=== PATIENT | female | born 1950 | race Caucasian/White ===

== ENCOUNTER → 2017-05-26 | Outpatient (CLI) | payer MEDICARE ==
[~2017-05-26] MED LIST: ANTIVERT/2525 MG PO; ANTIVERT25 MG; ATIVAN1 MG PO; CALCIUM 600600 M2 PO; CLARITIN10 MG PO; DAYPRO600 M1 PO; DIFLUCAN150 MG PO; FLAGYL500 MG PO; FLORASTOR250 MG PO; HYOSCYAMINE0.125 M1 PO; KEFLEX250 MG PO; LEVOFLOXACIN500 MG PO; MULTI VITAMINS1 TAB PO; NATURE'S BLE1000 MCG PO; NEXIUM40 MG PO; PEPCID40 MG PO; PROVENTIL0.09 MG/A1 INH; ROBAXIN750 MG PO; VICODIN ES 7501 TAB PO; VITAMIN B12 1541 TAB PO; VITAMIN C100 M3 PO; VITAMIN E100 UNI1 PO; ZOFRAN ODT4 MG SL; ZOLOFT50 MG PO
[2017-05-26 09:26] LABS: HEMATOCRIT 41.8 % (37.0-47.0); HEMOGLOBIN 13.4 g/dl (12.0-16.0); MEAN CELL VOLUME 88.9 fl (81.0-99.0); MEAN CORPUSCULAR HGB 28.5 pg (27.0-31.0); MEAN CORPUSCULAR HGB CONC 32.1 g/dl (33.0-37.0); MEAN PLATELET VOLUME 9.5 fl (9.6-12.3); RED BLOOD COUNT 4.7 10*6/uL (4.10-5.10); RED CELL DISTRI WIDTH 13.7 % (0-14.5); WHITE BLOOD COUNT 5.9 10*3/uL (4.8-10.8)
[2017-05-26 09:51] LABS: ALBUMIN 3.9 gm/dl (3.1-4.5); ALKALINE PHOSPHATASE 77 U/L (45-117); BUN 12 mg/dl (7-24); CHLORIDE 104 mmol/L (98-107); CHOLESTEROL 199 mg/dL (<200); CPK 82 U/L (26-192); CREATININE 0.78 mg/dL (0.55-1.02); HDL CHOLESTEROL 66 mg/dl (40-60); LDL CHOLESTEROL 119 mg/dL (9-159); POTASSIUM 3.9 mmol/L (3.5-5.1); SGOT/AST 16 IU/L (3-35); SGPT/ALT 22 U/L (12-78); SODIUM 142 mmol/L (136-145); TOTAL PROTEIN 7.7 gm/dL (6.4-8.2); TRIGLYCERIDES 70 mg/dl (<150); VLDL CHOLESTEROL 14 mg/dL (6-40)
[2017-05-27 08:11] LABS: RHEUMATOID ARTHRITIS FACTOR <10.0 IU/mL (0.0-13.9)
== END | disposition home or self-care (01) ==
LOC: LAB 08:49
PROVIDERS: Family Medicine
DX: E78.00 Pure hypercholesterolemia, unspecified (principal); L65.9 Nonscarring hair loss, unspecified; M79.1 Myalgia; F41.1 Generalized anxiety disorder; E74.09 Other glycogen storage disease; K58.9 Irritable bowel syndrome, unspecified; E55.9 Vitamin D deficiency, unspecified

== ENCOUNTER → 2018-03-03 | Outpatient (CLI) | payer MEDICARE ==
[2018-03-03 09:11] LABS: HEMOGLOBIN 14.1 g/dl (12.0-16.0); MEAN CELL VOLUME 90.4 fl (81.0-99.0); MEAN CORPUSCULAR HGB 28.3 pg (27.0-31.0); MEAN CORPUSCULAR HGB CONC 31.3 g/dl (33.0-37.0); MEAN PLATELET VOLUME 9.4 fl (9.6-12.3); RED BLOOD COUNT 4.98 10*6/uL (4.10-5.10); RED CELL DISTRI WIDTH 13.8 % (0-14.5); WHITE BLOOD COUNT 6.2 10*3/uL (4.8-10.8)
[2018-03-03 09:33] LABS: ALBUMIN 3.8 gm/dl (3.1-4.5); ALKALINE PHOSPHATASE 80 U/L (45-117); BUN 14 mg/dl (7-24); CHLORIDE 105 mmol/L (98-107); CHOLESTEROL 226 mg/dL (<200); HDL CHOLESTEROL 64 mg/dl (40-60); LDL CHOLESTEROL 143 mg/dL (9-159); POTASSIUM 4.3 mmol/L (3.5-5.1); SGOT/AST 15 IU/L (3-35); SGPT/ALT 20 U/L (12-78); SODIUM 141 mmol/L (136-145); TOTAL PROTEIN 7.5 gm/dL (6.4-8.2); TRIGLYCERIDES 97 mg/dl (<150); VLDL CHOLESTEROL 19 mg/dL (6-40)
[2018-03-03 11:02] LABS: VITAMIN D, 25-HYDROXY 39.4 ng/mL (30-100)
[2018-03-05 17:34] LABS: TESTOSTERONE FREE, (DIRECT) 1.4 pg/mL (0.0-4.2)
== END | disposition home or self-care (01) ==
LOC: LAB 08:35
PROVIDERS: Family Medicine
DX: R06.02 Shortness of breath (principal); R05 Cough; R09.89 Other specified symptoms and signs involving the circulatory and respiratory systems; R42 Dizziness and giddiness; R53.83 Other fatigue; E55.9 Vitamin D deficiency, unspecified; K58.9 Irritable bowel syndrome, unspecified; F41.9 Anxiety disorder, unspecified; L98.9 Disorder of the skin and subcutaneous tissue, unspecified; E74.00 Glycogen storage disease, unspecified; Z79.899 Other long term (current) drug therapy

== ENCOUNTER → 2018-07-10 | Outpatient (CLI) | payer MEDICARE ==
[~2018-07-10] MED LIST changes: +NEXIUM20 M1 PO
== END | disposition home or self-care (01) ==
LOC: US 08:56
DX: R10.2 Pelvic and perineal pain (principal); Z90.710 Acquired absence of both cervix and uterus; Z90.721 Acquired absence of ovaries, unilateral; Z90.5 Acquired absence of kidney

== ENCOUNTER → 2018-08-14 | Day surgery (SDC) | payer MEDICARE ==
[~2018-08-14] VITALS: Ht 170.1 cm; Wt 65.8 kg
--- NOTE | ~2018-08-14 | O ---
[place], [place] OPERATIVE NOTE NAME: SALLY KUMARI UNIT #: [id number] ROOM: DOCTOR: CAMILLA IBRAHIMKENDAL BIRTHDATE: [birth year] DOS: 08/14/2018 INDICATIONS: A 68-year-old patient who has presented with chief complaint of epigastric distress, dyspepsia, abdominal pain, and cramp. ALLERGIES: LEVAQUIN, MYCINS AND IVP DYE. FAMILY HISTORY: Noncontributory. PAST SURGICAL HISTORY: Hysterectomy, tonsillectomy, hemorrhoidectomy, breast lumpectomy, and negative pathology of the breast biopsy. PAST MEDICAL HISTORY: Gastritis, depression, IBS diarrhea-dominant. PROCEDURE: Today's procedure part of investigation is panendoscopy and colonoscopy. PREMEDICATION: Propofol. SCOPE: Olympus forward-viewing gastroscope Q10 video. REPORT: After putting the patient in left lateral position and application of lubricant to the scope, the scope was introduced. Thereafter, under direct visualization, advanced through the length of esophagus without difficulty. Hiatal hernia was noticed. Small gastritis appreciated. Antral biopsy obtained. Duodenal bulb, second and third part within normal limit. The patient extubated, tolerated the procedure well. IMPRESSION: Gastritis and hiatal hernia. PLAN AND DISCUSSION: The patient already on Nexium 20 mg 1 every day. Elevation of the head of the bed 6 inch all time. Gaviscon as antacid of choice. Furthermore, we are going to proceed with colonoscopy. INDICATIONS: The patient has presented with chief complaint of change in bowel habit, abdominal pain, undergoing investigation. PROCEDURE: Today's procedure part of investigation is colonoscopy plus piecemeal polypectomy. PREMEDICATION: Propofol. SCOPE: Olympus forward-viewing colonoscope 10L video. REPORT: After putting the patient in left lateral position and application of lubricant to the scope, the scope was introduced. Thereafter, under direct visualization, advanced through the length of colon without difficulty. Base of the cecum explored, appendiceal orifice identified. The ileocecal valve was defined. Moderate diverticulosis of sigmoid colon was appreciated. Sessile polypoid lesion from the base of the cecum with piecemeal polypectomy was [place], [place] OPERATIVE NOTE NAME: LANE KUMARIKimberly Sena UNIT #: [id number] ROOM: DOCTOR: CAMILLA IBRAHIM,KENDAL BIRTHDATE: [birth year] removed. Air was suctioned out. The patient was extubated, tolerated the procedure well. IMPRESSION: Colonic polyp at the base of cecum, sessile in character, status post piecemeal polypectomy. Other adjunctive diagnosis [id number] diverticulosis of sigmoid colon, status post photographic series. PLAN AND DISCUSSION: We are going to consider an element of diverticular disease in her complaints of left lower quadrant pain and an element of irritable bowel syndrome with diarrhea dominance and I have reviewed her CT scan of the chest of 2018, normal thoracic and abdominal aorta. No dissections, incidental finding of 2.6 cm simple cyst in the left kidney and I have reviewed the CT scan of the abdomen and pelvis without contrast in 2016 otherwise main organs including spleen, adrenal gland, pancreas, and liver all within normal limit. Since these studies are old and although there have been compared to study of 2013. I am going to organize the CT scan of the abdomen and pelvis with contrast on her, since she has been having continuous GI distress. We are going to continue hyoscyamine and clinical reassessement. KENDAL SAMPSON MD CM:OPRECORD:OPERATIVE NOTE [id number] SABAS SAMPSON MD 08/14/18 1329 interface
[2018-08-14 09:50] VITALS: BP 153/81
[2018-08-14 11:30] VITALS: BP 142/77
[2018-08-14 11:45] VITALS: BP 139/78; BP 142/77
[2018-08-14 12:00] VITALS: BP 139/68
== END | disposition home or self-care (01) ==
LOC: SDC 08-13 13:15
DX: K63.5 Polyp of colon (principal); K29.50 Unspecified chronic gastritis without bleeding; K57.30 Diverticulosis of large intestine without perforation or abscess without bleeding; K44.9 Diaphragmatic hernia without obstruction or gangrene; K21.9 Gastro-esophageal reflux disease without esophagitis; F41.9 Anxiety disorder, unspecified; Z88.8 Allergy status to other drugs, medicaments and biological substances; Z88.1 Allergy status to other antibiotic agents; Z91.041 Radiographic dye allergy status; Z90.710 Acquired absence of both cervix and uterus; Z98.890 Other specified postprocedural states; Z87.01 Personal history of pneumonia (recurrent); Z85.828 Personal history of other malignant neoplasm of skin

== ENCOUNTER → 2018-08-28 | Outpatient (CLI) | payer MEDICARE ==
[2018-08-28 08:37] LABS: BUN 10 mg/dl (7-24); CREATININE 0.75 mg/dL (0.55-1.02)
== END | disposition home or self-care (01) ==
LOC: LAB 08:06 → CT 08:06
PROVIDERS: Internal Medicine Gastroenterology
DX: R10.9 Unspecified abdominal pain (principal); M47.816 Spondylosis without myelopathy or radiculopathy, lumbar region

== ENCOUNTER → 2018-10-15 | Outpatient (CLI) | payer MEDICARE ==
[2018-10-15 10:12] LABS: HEMATOCRIT 44.2 % (37.0-47.0); HEMOGLOBIN 13.7 g/dl (12.0-16.0); MEAN CELL VOLUME 90.9 fl (81.0-99.0); MEAN CORPUSCULAR HGB 28.2 pg (27.0-31.0); MEAN PLATELET VOLUME 9.6 fl (9.6-12.3); RED BLOOD COUNT 4.86 10*6/uL (4.10-5.10); RED CELL DISTRI WIDTH 13.9 % (0-14.5); WHITE BLOOD COUNT 6.8 10*3/uL (4.8-10.8)
[2018-10-15 10:25] LABS: ALKALINE PHOSPHATASE 77 U/L (45-117); BUN 11 mg/dl (7-24); CHLORIDE 107 mmol/L (98-107); CHOLESTEROL 220 mg/dL (<200); CREATININE 0.67 mg/dL (0.55-1.02); HDL CHOLESTEROL 67 mg/dl (40-60); LDL CHOLESTEROL 136 mg/dL (9-159); POTASSIUM 4.1 mmol/L (3.5-5.1); SGOT/AST 19 IU/L (3-35); SGPT/ALT 21 U/L (12-78); SODIUM 141 mmol/L (136-145); TOTAL PROTEIN 7.6 gm/dL (6.4-8.2); TRIGLYCERIDES 84 mg/dl (<150); VLDL CHOLESTEROL 17 mg/dL (6-40)
== END | disposition home or self-care (01) ==
LOC: LAB 09:32
PROVIDERS: Family Medicine
DX: E78.00 Pure hypercholesterolemia, unspecified (principal); E55.9 Vitamin D deficiency, unspecified; K21.9 Gastro-esophageal reflux disease without esophagitis; J32.9 Chronic sinusitis, unspecified; F41.1 Generalized anxiety disorder; E74.00 Glycogen storage disease, unspecified

== ENCOUNTER → 2019-07-19 | Outpatient (CLI) | payer MEDICARE ==
[2019-07-19 11:45] LABS: BASO % 0.3 % (0.0-1.0); EOS # 0.1 10*3/uL (0.0-0.4); EOS % 1.4 % (1.0-4.0); HEMOGLOBIN 13.7 g/dl (12.0-16.0); LYMPH # 2.1 10*3/uL (1.3-4.4); LYMPH % 29.6 % (27.0-41.0); MEAN CELL VOLUME 88.4 fl (81.0-99.0); MEAN CORPUSCULAR HGB 27.5 pg (27.0-31.0); MEAN CORPUSCULAR HGB CONC 31.1 g/dl (33.0-37.0); MEAN PLATELET VOLUME 9.4 fl (9.6-12.3); MONO # 0.5 10*3/uL (0.1-1.0); MONO % 6.3 % (3.0-9.0); NEUT # 4.5 10*3/uL (2.3-7.9); NEUT % 62.1 % (47.0-73.0); PLATELET COUNT AUTOMATED 344 10*3/uL (130-400); RED BLOOD COUNT 4.98 10*6/uL (4.10-5.10); RED CELL DISTRI WIDTH 13.6 % (0-14.5); WHITE BLOOD COUNT 7.2 10*3/uL (4.8-10.8)
[2019-07-19 12:32] LABS: CHLORIDE 105 mmol/L (98-107); POTASSIUM 4.1 mmol/L (3.5-5.1); SODIUM 139 mmol/L (136-145)
[2019-07-19 12:41] LABS: VITAMIN D, 25-HYDROXY 41.8 ng/mL (30-100)
[2019-07-19 12:50] LABS: ALBUMIN 4.2 gm/dl (3.1-4.5); ALKALINE PHOSPHATASE 77 U/L (45-117); BUN 11 mg/dl (7-24); CHOLESTEROL 221 mg/dL (<200); CREATININE 0.79 mg/dL (0.55-1.02); FREE T4 0.81 ng/dl (0.76-1.46); HDL CHOLESTEROL 64 mg/dl (40-60); LDL CHOLESTEROL 139 mg/dL (9-159); SGOT/AST 13 IU/L (3-35); SGPT/ALT 20 U/L (12-78); TOTAL PROTEIN 7.8 gm/dL (6.4-8.2); TRIGLYCERIDES 92 mg/dl (<150); VLDL CHOLESTEROL 18 mg/dL (6-40)
== END | disposition home or self-care (01) ==
LOC: LAB 11:03
PROVIDERS: Internal Medicine
DX: Z13.21 Encounter for screening for nutritional disorder (principal); Z13.220 Encounter for screening for lipoid disorders; Z13.1 Encounter for screening for diabetes mellitus; I10 Essential (primary) hypertension; E78.2 Mixed hyperlipidemia; E55.9 Vitamin D deficiency, unspecified

== ENCOUNTER → 2019-09-06 | Outpatient (CLI) | payer MEDICARE ==
[2019-09-06 10:16] LABS: ALBUMIN 3.9 gm/dl (3.1-4.5); ALKALINE PHOSPHATASE 74 U/L (45-117); BUN 10 mg/dl (7-24); CHLORIDE 108 mmol/L (98-107); CREATININE 0.82 mg/dL (0.55-1.02); SGOT/AST 15 IU/L (3-35); SGPT/ALT 18 U/L (12-78); SODIUM 142 mmol/L (136-145); TOTAL PROTEIN 7.5 gm/dL (6.4-8.2)
== END | disposition home or self-care (01) ==
LOC: LAB 07:51 → US 08:30
PROVIDERS: Specialist
DX: Z12.31 Encounter for screening mammogram for malignant neoplasm of breast (principal); R42 Dizziness and giddiness; N63.11 Unspecified lump in the right breast, upper outer quadrant; I65.23 Occlusion and stenosis of bilateral carotid arteries

== ENCOUNTER → 2019-09-09 | Outpatient (CLI) | payer MEDICARE | END | disposition home or self-care (01) | LOC: MAMMO 10:00 | DX: N63.21 Unspecified lump in the left breast, upper outer quadrant (principal); N60.02 Solitary cyst of left breast ==

== ENCOUNTER → 2019-09-20 | Outpatient (CLI) | payer MEDICARE | END | disposition home or self-care (01) | LOC: MRI 09-17 00:23 | DX: I77.1 Stricture of artery (principal); I65.22 Occlusion and stenosis of left carotid artery ==

== ENCOUNTER → 2020-10-13 | Outpatient (CLI) | payer MEDICARE | END | disposition home or self-care (01) | LOC: LAB 11:59 | PROVIDERS: ATTEND Surgery | DX: R19.7 Diarrhea, unspecified (principal); Z20.822 Contact with and (suspected) exposure to COVID-19 ==

== ENCOUNTER → 2020-10-16 | Day surgery (SDC) | payer MEDICARE ==
[~2020-10-16] VITALS: Ht 170.1 cm; Wt 65.8 kg
[2020-10-16 06:46] VITALS: BP 151/67
[2020-10-16 08:00] VITALS: BP 129/60
[2020-10-16 08:15] VITALS: BP 140/67
[2020-10-16 08:30] VITALS: BP 138/69
== END | disposition home or self-care (01) ==
LOC: SDC 10-13 11:00
PROVIDERS: ATTEND Surgery
DX: R19.7 Diarrhea, unspecified (principal); K29.70 Gastritis, unspecified, without bleeding; K57.30 Diverticulosis of large intestine without perforation or abscess without bleeding; F41.9 Anxiety disorder, unspecified

== ENCOUNTER → 2020-12-18 | Outpatient (CLI) | payer MEDICARE ==
[2020-12-18 07:37] LABS: BASO % 0.5 % (0.0-1.0); EOS # 0.2 10*3/uL (0.0-0.4); EOS % 2.9 % (1.0-4.0); HEMATOCRIT 43.8 % (37.0-47.0); LYMPH # 1.8 10*3/uL (1.3-4.4); LYMPH % 29.1 % (27.0-41.0); MEAN CELL VOLUME 89.6 fl (81.0-99.0); MEAN CORPUSCULAR HGB 27.6 pg (27.0-31.0); MEAN CORPUSCULAR HGB CONC 30.8 g/dl (33.0-37.0); MEAN PLATELET VOLUME 9.2 fl (9.6-12.3); MONO # 0.5 10*3/uL (0.1-1.0); MONO % 8.3 % (3.0-9.0); NEUT # 3.6 10*3/uL (2.3-7.9); PLATELET COUNT AUTOMATED 344 10*3/uL (130-400); RED BLOOD COUNT 4.89 10*6/uL (4.10-5.10); RED CELL DISTRI WIDTH 13.6 % (0-14.5); WHITE BLOOD COUNT 6.1 10*3/uL (4.8-10.8)
[2020-12-18 07:55] LABS: ALBUMIN 3.7 gm/dl (3.1-4.5); ALKALINE PHOSPHATASE 72 U/L (45-117); BUN 12 mg/dl (7-24); CHLORIDE 109 mmol/L (98-107); CHOLESTEROL 213 mg/dL (<200); CREATININE 0.64 mg/dL (0.55-1.02); POTASSIUM 3.9 mmol/L (3.5-5.1); SGOT/AST 11 IU/L (3-35); SGPT/ALT 18 U/L (12-78); SODIUM 142 mmol/L (136-145); T3 UPTAKE 33 % (31-39); TOTAL PROTEIN 7.4 gm/dL (6.4-8.2); TRIGLYCERIDES 102 mg/dl (<150)
[2020-12-18 08:01] LABS: FREE T4 0.75 ng/dl (0.76-1.46); LDL CHOLESTEROL 135 mg/dL (9-159)
[2020-12-18 08:24] LABS: VITAMIN D, 25-HYDROXY 43.6 ng/mL (30-100)
== END | disposition home or self-care (01) ==
LOC: LAB 07:01
PROVIDERS: ATTEND Internal Medicine
DX: Z13.1 Encounter for screening for diabetes mellitus (principal); L65.9 Nonscarring hair loss, unspecified; E55.9 Vitamin D deficiency, unspecified; Z13.21 Encounter for screening for nutritional disorder; Z13.220 Encounter for screening for lipoid disorders; I10 Essential (primary) hypertension

== ENCOUNTER → 2021-01-03 | Outpatient (CLI) | payer MEDICARE | END | disposition home or self-care (01) | LOC: RAD 08:21 → MAMMO 10:00 | PROVIDERS: ATTEND Internal Medicine | DX: Z13.820 Encounter for screening for osteoporosis (principal); R92.8 Other abnormal and inconclusive findings on diagnostic imaging of breast; Z78.0 Asymptomatic menopausal state ==

== ENCOUNTER → 2022-01-03 | Outpatient (CLI) | payer MEDICARE ==
[2022-01-03 12:12] LABS: BASO % 0.3 % (0.0-1.0); EOS # 0.1 10*3/uL (0.0-0.4); EOS % 1.7 % (1.0-4.0); HEMATOCRIT 43.1 % (37.0-47.0); LYMPH % 31.2 % (27.0-41.0); MEAN CORPUSCULAR HGB 28.5 pg (27.0-31.0); MEAN PLATELET VOLUME 9.2 fl (9.6-12.3); MONO # 0.4 10*3/uL (0.1-1.0); MONO % 6.9 % (3.0-9.0); NEUT # 3.8 10*3/uL (2.3-7.9); NEUT % 59.6 % (47.0-73.0); PLATELET COUNT AUTOMATED 310 10*3/uL (130-400); RED BLOOD COUNT 4.84 10*6/uL (4.10-5.10); RED CELL DISTRI WIDTH 13.6 % (0-14.5); WHITE BLOOD COUNT 6.4 10*3/uL (4.8-10.8)
[2022-01-03 12:34] LABS: BUN 14 mg/dl (7-24); CHLORIDE 108 mmol/L (98-107); POTASSIUM 3.9 mmol/L (3.5-5.1); SODIUM 142 mmol/L (136-145)
[2022-01-03 12:39] LABS: VITAMIN D, 25-HYDROXY 36.6 ng/mL (30-100)
[2022-01-03 12:45] LABS: ALKALINE PHOSPHATASE 71 U/L (45-117); CHOLESTEROL 245 mg/dL (<200); CREATININE 0.69 mg/dL (0.55-1.02); FREE T4 0.84 ng/dl (0.76-1.46); LDL CHOLESTEROL 162 mg/dL (9-159); SGOT/AST 13 IU/L (3-35); SGPT/ALT 17 U/L (12-78); TOTAL PROTEIN 7.6 gm/dL (6.4-8.2); TRIGLYCERIDES 105 mg/dl (<150)
== END | disposition home or self-care (01) ==
LOC: LAB 11:40
PROVIDERS: ATTEND Internal Medicine
DX: I10 Essential (primary) hypertension (principal); E55.9 Vitamin D deficiency, unspecified; E78.2 Mixed hyperlipidemia; Z13.0 Encounter for screening for diseases of the blood and blood-forming organs and certain disorders involving the immune mechanism; Z13.1 Encounter for screening for diabetes mellitus; Z13.21 Encounter for screening for nutritional disorder; Z13.228 Encounter for screening for other metabolic disorders; Z13.220 Encounter for screening for lipoid disorders; Z13.29 Encounter for screening for other suspected endocrine disorder; Z13.6 Encounter for screening for cardiovascular disorders; Z13.89 Encounter for screening for other disorder; Z13.9 Encounter for screening, unspecified

== ENCOUNTER → 2022-01-24 | Outpatient (CLI) | payer MEDICARE | END | disposition home or self-care (01) | LOC: MAMMO 01-17 13:30 → US 01-17 14:30 → MAMMO 12:07 | PROVIDERS: ATTEND Internal Medicine | DX: N63.21 Unspecified lump in the left breast, upper outer quadrant (principal); R92.1 Mammographic calcification found on diagnostic imaging of breast; R92.8 Other abnormal and inconclusive findings on diagnostic imaging of breast ==

== ENCOUNTER → 2022-08-29 | Outpatient (CLI) | payer MEDICARE ==
[2022-08-29 14:45] LABS: VITAMIN D, 25-HYDROXY 52.7 ng/mL (30-100)
== END | disposition home or self-care (01) ==
LOC: LAB 13:19
PROVIDERS: ATTEND Nurse Practitioner Women's Health
DX: E55.9 Vitamin D deficiency, unspecified (principal); L65.9 Nonscarring hair loss, unspecified; R53.83 Other fatigue

== ENCOUNTER → 2023-01-06 | Outpatient (CLI) | payer MEDICARE ==
[2023-01-06 11:14] LABS: BASO % 0.5 % (0.0-1.0); EOS # 0.1 10*3/uL (0.0-0.4); EOS % 1.7 % (1.0-4.0); HEMATOCRIT 42.3 % (37.0-47.0); LYMPH # 2.1 10*3/uL (1.3-4.4); MEAN CELL VOLUME 88.5 fl (81.0-99.0); MEAN CORPUSCULAR HGB 28.7 pg (27.0-31.0); MEAN CORPUSCULAR HGB CONC 32.4 g/dl (33.0-37.0); MEAN PLATELET VOLUME 9.1 fl (9.6-12.3); MONO # 0.5 10*3/uL (0.1-1.0); MONO % 8.5 % (3.0-9.0); NEUT # 3.1 10*3/uL (2.3-7.9); NEUT % 53.1 % (47.0-73.0); PLATELET COUNT AUTOMATED 314 10*3/uL (130-400); RED BLOOD COUNT 4.78 10*6/uL (4.10-5.10); RED CELL DISTRI WIDTH 13.6 % (0-14.5); WHITE BLOOD COUNT 5.9 10*3/uL (4.8-10.8)
[2023-01-06 11:41] LABS: ALKALINE PHOSPHATASE 77 U/L (46-116); BUN 10 mg/dl (9-23); CHLORIDE 105 mmol/L (98-107); CHOLESTEROL 229 mg/dL (<200); FREE T4 1.02 ng/dl (0.89-1.76); LDL CHOLESTEROL 150 mg/dL (9-159); SGPT/ALT 7 U/L (10-49); TOTAL PROTEIN 7.3 gm/dL (6.0-8.0); TRIGLYCERIDES 95 mg/dl (<150)
[2023-01-06 11:56] LABS: VITAMIN D, 25-HYDROXY 50.8 ng/mL (30-100)
== END | disposition home or self-care (01) ==
LOC: LAB 10:49
PROVIDERS: ATTEND Internal Medicine
DX: I10 Essential (primary) hypertension (principal); E55.9 Vitamin D deficiency, unspecified; E78.2 Mixed hyperlipidemia; F32.0 Major depressive disorder, single episode, mild; F33.0 Major depressive disorder, recurrent, mild

== ENCOUNTER → 2023-01-27 | Outpatient (CLI) | payer MEDICARE | END | disposition home or self-care (01) | LOC: MAMMO 00:16 | PROVIDERS: ATTEND Internal Medicine | DX: Z12.31 Encounter for screening mammogram for malignant neoplasm of breast (principal); Z78.0 Asymptomatic menopausal state ==